=== PATIENT | female | born 2000 | race Native Hawaiian/Other Pacific Islander ===

== ENCOUNTER 2021-11-12 01:05 | Emergency (ER) | payer OTHER ==
[2021-11-12 01:36] VITALS: BP 144/95
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
== END 2021-11-12 02:46 ==
LOC: EEVIPCON 01:05 → ED 01:05
CPT/HCPCS: 99282